=== PATIENT | female | born 2000 | race Caucasian/White ===

== ENCOUNTER → 2018-06-16 19:14 | Outpatient (REF) | payer OTHER, MEDICAID, SELFPAY ==
[2018-06-16 20:20] LABS: HIV 1 and 2 Antibody NEGATIVE (NEGATIVE)
[2018-06-19 22:59] LABS: RPR Screen Nonreactive (Nonreactive)
== END ==
LOC: LAB 19:14
PROVIDERS: PCP Physician Assistant Medical; Visit Provider Physician Assistant Medical
DX: Z11.3 Encounter for screening for infections with a predominantly sexual mode of transmission (principal)
CPT/HCPCS: 36415; 86592; 86703

== ENCOUNTER 2018-07-10 10:49 | Emergency (ER) | payer OTHER, MEDICAID, SELFPAY ==
[2018-07-10 10:57] VITALS: BP 146/101; PULSE 112; RESP 18; TEMP 36.9; O2SAT 99
--- NOTE | 2018-07-10 12:00 | PC.NURSE ---
Patient stated she wanted to leave, but RN told her that the [employer] brought her in and wanted her to get help so at this time cannot leave until medically cleared. Patient sitting on bed singing to herself She asked What kind of help do the police want me to get? She asked for her clothes
--- NOTE | 2018-07-10 12:03 | PC.NURSE ---
Food and beverage offered to patient but she declined
--- NOTE | 2018-07-10 12:05 | PC.NURSE ---
Patient asked us to call and let her mother and aunt know that she is here and if her mother calls she wants to talk to her
--- NOTE | 2018-07-10 12:10 | PC.NURSE ---
Gave pt apple juice on ice
--- NOTE | 2018-07-10 12:35 | PC.NURSE ---
1235 VAMP WETTER note Patient asked about what the news said, wants me to look up the news. Told her we can't do that, this is a work computer. Patient is asking to call her mom, wants me to let her out. I told patient she needs to sit in bed, and just get some rest. Patient is walking around room.
[2018-07-10 12:38] LABS: Urine Amphetamines Positive (Negative); Urine Barbiturates Negative (Negative); Urine Benzodiazepines Negative (Negative); Urine Cocaine Negative (Negative); Urine MDMA Positive (Negative); Urine Methadone Negative (Negative); Urine Methamphetamines Positive (Negative); Urine Morphine/Opi cutoff 2000 Negative (Negative); Urine Oxycodone Negative (Negative); Urine Phencyclidine Negative (Negative); Urine Tetrahydrocannabinol Positive (Negative); Urine Tricyclic Antidepressant Negative (Negative)
--- NOTE | 2018-07-10 12:58 | ED_ITS ---
HPI - Psych <HILDA Taylor - Last Filed: 07/10/18 22:13> General Chief Complaint: Psychiatric Symptoms Stated Complaint: Mental health Eval Time Seen by Provider: 07/10/18 12:21 Source: patient Mode of arrival: ambulatory Limitations: no limitations History of Present Illness HPI Narrative: 17-year-old female with history of meth abuse brought in by police due to having paranoia type symptoms. They state that she was in the parking was concerned about being poisoned and trying to be blown up by her boyfriend's a vehicle that was under pressure in that she had to release the pressure by opening the door eye. No known suicidal ideation. No known homicidal ideation. Charges were not filed against her. She states that she last used meth yesterday. She desires to go home at this timeframe. She does not want to have labs drawn. She did not want detox treatment. She does not want any inpatient help. Informed that her mother is coming to pick her up. Did discuss with patient that is a good idea for her at least wait for her mother to come before leaving. MD complaint: other Related Data Home Medications Medication Instructions Recorded Confirmed gabapentin 100 mg PO TID 07/10/18 07/10/18 quetiapine 100 mg PO BEDTIME 07/10/18 Review of Systems <HILDA Taylor - Last Filed: 07/10/18 22:13> Constitutional Denies chills, Denies fever(s), Denies lethargy and Denies weakness Eyes Denies change in vision, Denies eye discharge, Denies irritation and Denies loss of vision ENT Ears, Nose, Mouth, and Throat: Denies change in voice, Denies neck pain and Denies sore throat Cardiovascular Denies chest pain, Denies irregular heart rhythm, Denies lightheadedness, Denies palpitations, Denies dyspnea, Denies dyspnea on exertion and Denies orthopnea Respiratory Denies cough, Denies dyspnea, Denies dyspnea on exertion and Denies wheezing Gastrointestinal Gastrointestinal: Denies abdominal pain, Denies change in bowel habits, Denies diarrhea, Denies nausea and Denies vomiting Genitourinary Denies hematuria, Denies flank pain, Denies urinary incontinence and Denies urinary urgency Musculoskeletal Denies neck pain Integumentary/Breasts Denies pruritus, Denies erythema, Denies rash and Denies wounds Neurologic Denies loss of vision and Denies weakness Psychiatric Reports anxiety and Reports paranoia Endocrine Denies palpitations Allergic/Immunologic Denies wheezing PFSH <HILDA Taylor - Last Filed: 07/10/18 22:13> Social History Smoking Status: Current every day smoker Social History Smoking Status: Current every day smoker Exam <HILDA Taylor - Last Filed: 07/10/18 22:13> Initial Vital Signs Initial Vital Signs: Vital Signs Temperature 98.4 F 07/10/18 10:57 Pulse Rate 112 H 07/10/18 10:57 Respiratory Rate 18 07/10/18 10:57 Blood Pressure 146/101 H 07/10/18 10:57 Pulse Oximetry 99 07/10/18 10:57 Const General: cooperative, well developed, anxious and intoxicated appearing Nutritional Appearance: well nourished Orientation: alert, awake and oriented x3 HENMT Mouth: oral mucosae normal and moist mucous membranes Eyes Conjunctivae: conjunctivae normal Sclera: sclerae normal Pupils: PERRL EOM: EOM intact bilaterally Resp Effort & Inspection: normal respiratory effort, able to speak in complete sentences, no respiratory distress and no use of accessory muscles Auscultation: clear to auscultation bilaterally, no rales, no rhonchi and no wheezes Cardio Rate: regular rate Rhythm: regular rhythm Heart Sounds: no click, no gallops, no murmurs and no rubs Pulses: normal peripheral pulses Skin General: no rashes or lesions noted, No jaundice and No petechiae Psych Mood: anxious mood Affect: anxious affect Attitude: cooperative Thought Content: no homicidality and suicidality Judgment: fair <Josh Ramos MD - Last Filed: 07/12/18 02:41> Initial Vital Signs Initial Vital Signs: Vital Signs Temperature 98.4 F 07/10/18 10:57 Pulse Rate 112 H 07/10/18 10:57 Respiratory Rate 18 07/10/18 10:57 Blood Pressure 146/101 H 07/10/18 10:57 Pulse Oximetry 99 07/10/18 10:57 Course <HILDA Taylor - Last Filed: 07/10/18 22:13> Orders Ordered: ED Orders 07/10/18 11:45 Urine Drug Screen, Rapid Stat Vital Signs - 8 hr 07/10/18 17:05 Temperature 98.2 F Pulse Rate 101 H Respiratory Rate 18 Blood Pressure [Left Arm] 134/81 Pulse Oximetry 100 <Josh Ramos MD - Last Filed: 07/12/18 02:41> Orders Ordered: ED Orders 07/10/18 11:45 Urine Drug Screen, Rapid Stat Vital Signs - 8 hr 07/10/18 17:05 Temperature 98.2 F Pulse Rate 101 H Respiratory Rate 18 Blood Pressure [Left Arm] 134/81 Pulse Oximetry 100 MDM - Psych <HILDA Taylor - Last Filed: 07/10/18 22:13> Lab Data Lab Results 07/10/18 Range/Units 11:45 Urine Opiates Screen Negative (Negative) Ur Oxycodone Screen Negative (Negative) Urine Methadone Screen Negative (Negative) Ur Barbiturates Screen Negative (Negative) U Tricyclic Antidepress Negative (Negative) Ur Phencyclidine Scrn Negative (Negative) Ur Amphetamines Screen Positive H (Negative) U Methamphetamines Scrn Positive H (Negative) Ur MDMA Scrn (Ecstasy) Positive H (Negative) U Benzodiazepines Scrn Negative (Negative) Urine Cocaine Screen Negative (Negative) U Marijuana (THC) Screen Positive H (Negative) Point of Care Testing Test Results Negative Urine Dip Bedside Urine Glucose Negative Bedside Urine Bilirubin + 1 Bedside Urine Ketone - Negative Urine Specific [place] 1.030 Bedside Urine Occult Blood - Negative Bedside Urine pH 6.0 Bedside Urine Protein + 30 Bedside Urine Urobilinogen - Negative Bedside Urine Nitrite - Negative Bedside Urine Leukocytes - Negative Esterase [facility] Narrative Medical decision making narrative: She denies any suicidal ideations or homicidal ideations. Rapid urine drug screen was obtained and was positive for methamphetamines ecstasy and marijuana. Signs and symptoms presents as secon ailyn to recent meth and ecstasy use. She is alert and oriented x3. She is anxious and paranoid. She does not appear to be a risk to herself. She denies wanting any inpatient help at this time or detox. She was encouraged to wait for mother to come on the [place] to pick her up and she agreed. She has been cooperative in the emergency room. Discussed case with Dr. Ramos use states that if patient desires to leave that she is allowed to leave as she is not a danger to herself or others at this point and she cannot legally be held. She is discharged home with mother encouraged to follow up with primary care provider and seek detox if desires to quit. Return emergency room for any worsening symptoms. <Josh Ramos MD - Last Filed: 07/12/18 02:41> Lab Data Lab Results 07/10/18 Range/Units 11:45 Urine Opiates Screen Negative (Negative) Ur Oxycodone Screen Negative (Negative) Urine Methadone Screen Negative (Negative) Ur Barbiturates Screen Negative (Negative) U Tricyclic Antidepress Negative (Negative) Ur Phencyclidine Scrn Negative (Negative) Ur Amphetamines Screen Positive H (Negative) U Methamphetamines Scrn Positive H (Negative) Ur MDMA Scrn (Ecstasy) Positive H (Negative) U Benzodiazepines Scrn Negative (Negative) Urine Cocaine Screen Negative (Negative) U Marijuana (THC) Screen Positive H (Negative) Point of Care Testing Test Results Negative Urine Dip Bedside Urine Glucose Negative Bedside Urine Bilirubin + 1 Bedside Urine Ketone - Negative Urine Specific [place] 1.030 Bedside Urine Occult Blood - Negative Bedside Urine pH 6.0 Bedside Urine Protein + 30 Bedside Urine Urobilinogen - Negative Bedside Urine Nitrite - Negative Bedside Urine Leukocytes - Negative Esterase Discharge Plan Departure Patient Disposition: Home Clinical Impression: Drug-induced psychotic disorder Qualifiers: Complication of substance-induced condition: with unspecified complication Qualified Code(s): F19.959 - Other psychoactive substance use, unspecified with psychoactive substance-induced psychotic disorder, unspecified Discharge Date/Time: 07/10/18 18:00 Interventions: ED Discharge Assessment Last Done: 07/10/18 17:59 Instructions: Getting Treatment for Drug Addiction Activity Restrictions/Additional Instructions: Signs and symptoms present as secondary to methamphetamine use and ecstasy use. Recommend stop using illicit drugs to prevent their side effects. Follow up with your primary care provider. If you desire help to quit drug use recommend detox treatment. Return to the emergency room for any worsening symptoms. Prescriptions: No Action quetiapine 100 mg tablet 100 mg PO BEDTIME RF: 0 gabapentin 100 mg capsule 100 mg PO TID RF: 0 Referrals: Ludy Enamorado PA-C [Primary Care Provider] -
--- NOTE | 2018-07-10 12:59 | PC.NURSE ---
1259 SOFTWARE ASSET MANAGEMENT ANALYST note Patient talked on the phone per Gayatri. Patient is now in bed. She asked me to get her clothes, told me the doctor said it was okay and she's going home. I said I'd check on that but right now it's best if she sits on the bed. She sat down, then asked me how her sister . I said I don't know what you're talking about, but why don't you sit down? She is sitting on the bed looking at her hands crying.
--- NOTE | 2018-07-10 13:06 | PC.NURSE ---
pt refused lab draw from phlebolotmist, he said the needle was in her arm and she told him to take it out. I tried talking with her to agree to accept a blood draw and she refused. this was at 1110. Talked with mother Atiya White on the phone and she said she would be here around 5pm to pick her up. pt is alert and asking for evon.
--- NOTE | 2018-07-10 13:13 | PC.NURSE ---
1313 ACQUISITION ADVISOR note patient is in bed, occasionally crying, playing with hair.
--- NOTE | 2018-07-10 13:16 | PC.NURSE ---
Patient asking to talk to Stevenson saying she wants her clothes and wants to go. She doesn't want her Mom. I said I will rely the message when I can. Patient reiterated she doesn't want to see her mom.
--- NOTE | 2018-07-10 13:22 | PC.NURSE ---
5585 Patient is standing up wanting to talk to Doctor Stevenson. Explained to her he's with another patient, wanted to know which patient. I said I can't tell you that. Patient wants to talk to him. I told him when I see him I will tell him. She is standing in the room starring at me, crying.
--- NOTE | 2018-07-10 13:48 | PC.NURSE ---
returned the mother's call, updated her. Waiting for her to come to get the patient so she can be in a safe place. pt is lying on the gurney and So NOLASCO is at her door. pt's needs are met.
--- NOTE | 2018-07-10 14:21 | PC.NURSE ---
IMPRESS ASSOCIATE Note 1422 Patient is sleeping on gurney with blanket around her.
--- NOTE | 2018-07-10 15:18 | PC.NURSE ---
PERSONNEL SCHEDULER note 1519 Patient is sleeping on side with blanket wrapped around her.
--- NOTE | 2018-07-10 16:31 | PC.NURSE ---
HIGH SCHOOL MUSIC INSTRUCTOR note 1632 Patient is sleeping. [place] wrapped around her.
[2018-07-10 17:05] VITALS: BP 134/81; PULSE 101; RESP 18; TEMP 36.8; O2SAT 100
--- NOTE | 2018-07-10 17:09 | PC.NURSE ---
DRESS CUTTER note 1704 vital signs complete. Patient woke up and started to cry to please go home.
--- NOTE | 2018-07-10 17:15 | PC.NURSE ---
PRESS ASSISTANT note Patient is crying loudly. Sitting on edge of the bed.
--- NOTE | 2018-07-10 17:27 | PC.NURSE ---
HEDIS ANALYST note. Patient was standing at the door asking for the doctor, saw the male RT and called for him and wanted his help, asking to call relatives, and wanting to leave- stating I am over 16, I don't need my mom. RT talked to her. Selin LOPEZ, talked to patient, updated her, got her a snack. Patient sitting on bed crying, eating her snack, saying that my mom is here I can feel it. I can feel her.
--- NOTE | 2018-07-10 17:45 | PC.NURSE ---
pt stated that she is 17 and can make her own decisions, I told her that was true but her mom was on her way. She doesn't want to see her mom. I got her something to eat at her request. As I was getting her ready for discharge, Gissel our social media sr strategy manager wondered if the patient wanted to see her so I asked the patient and she agreed to talk with Gissel. and just now the family has arrived, I've asked them to wait in the lobby until she is done talking with Gissel. pt is dressed as she was going to be discharged.
--- NOTE | 2018-07-10 18:59 | CM.SWNOTE ---
ED VEGETABLE BUNCHER NOTE Presenting problem: Pt is a 17 yo brought in by [employer]. Tox screen was positive for meth, ecstasy, and marijuana. Initially pt wanted to leave, but was convinced to stay and fell asleep. Pt was unable to say why she was brought to the hospital. When I introduced myself to the pt she said you were in my dream. A short time later she asked if I was related to the sun god. Assessment: Pt seems to be having a psychotic response to the substances taken. Despite some of the illogical comments, She was consistent in her denial of SI to several staff and her provider. She mentioned to this SW that she often has SI, but has not for several days. When asked what she does and if she is employed, she reported that she cared for her child. She mentioned that her child is with the child's father. It is not known how much time she spends with this child and if she has custody. Pt was able to provide several phone numbers and names of relatives in Tuesday. It was not clear where she was going upon discharge as she initially stated she did not want to see her mother. despite this, pt's mother came by valarie from Tuesday to bead picker pt. Pt was very vague in her comments, but given that she denied SI and HI and her mother was picking pt up to take her back to [place], it did not appear that pt met criteria for detainment. Mental Status: Pt is a well groomed 17 yo who looks considerably younger than her stated age. Eye contact: Pt tended to stare directly at this when asked a question. It was not direct eye contact, but more of a feeling as though she was staring through. Speech/language: Pt's speech was soft,sentences was clear and goal directed. Thought process: It appeared as though pt was paranoid. ( stating that she is supposed to be the fall for what's going on) She did not elaborate. She thought she knew me from a dream, but denied hearing voices or having any visual hallucinations. Affect was blunted, but earlier today information stated pt was crying loudly. Mood appeared sad. SI/HI denied. Plan: Encouraged pt to accept a call from [employer] this evening, but she declined. She accepted info from [employer] and requested the phone # for [facility] in [place] where she previously attended a rehab program. Pt was also provided with a list of other substance abuse services in the area. She is aware that she can return should symptoms worsen. No further SW needs noted. Discharge Planning/Care Management ED Crisis Response Assessment Start: 07/10/18 18:53 Freq: Status: Active Protocol: Document 07/10/18 18:53 BG (Rec: 07/10/18 18:59 BG [id number]) ED Crisis Response Assessment VEGETABLE BUNCHER Assessment Type Substance Abuse Reason for VEGETABLE BUNCHER Referral Pt brought in by the police, assessed by BUILDINGS AND GROUNDS SUPERINTENDENT that she is safe to d/c. SW inquired if pt might be willing to be seen by me. Referred by Pt's RN Presenting Problem Pt is a 17 yo brought in by police. She was positive for meth, ecstasy, and although she denied SI, exhibited signs of paranoia and psychosis. Mental health diagnosis unknown other than substance abuse VOA/CMS check No Suicidal thoughts No Past Suicidal thoughts Yes Current Suicidal thoughts No Thoughts of harm to others No Risk factor comments unknown. Due to pt's psychiatric conditoin, it was not known what informaiton was valid. 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 It was not known if she actually watches the c hild or not. Crisis Plan Pt's mother came [place]. Pt gave the names of several relatives that she can contact and stay with today. Pt was very vague when asked where she planned to stay upon discharge. Resources Provided Pt was provide with handouts about resources in the area, [facility], and she requested the phone number for [facility] in [place]. Pt was unwilling to provide a lot of informaiton,b ut said hse had been there in the past and planned to contact them. Action taken Sent home: family/friends Additional Comment Pt was asked if she was interested in having VOA ghassan her to check in, but she declined. ED Psychiatric Symptoms Assessment Start: 07/10/18 11:03 Freq: Status: Discharge Protocol: Document 07/10/18 11:04 JUAN (Rec: 07/10/18 11:08 KAITLYNN [id number]) Psychiatric Symptoms Assessment Symptoms/Complaint Altered Mental Status Duration unknown History Of Same unknown Context Recent Drug Abuse Improves With Nothing Worsens With Nothing Associated Psychiatric Symptoms Racing Thoughts Details of Plan Denies SI/HI. Thoughts are disjointed. Paranoid in nature . Easily full of tears but able to be verbally reassured. Level of Consciousness Alert Restless Patient Orientation Name Age Birthday Patient Behavior/Mood Anxious Crying/Tearful Distractible Fearful Labile Restless Suspicious Ability to Follow Directions Poor Patient Cognition Impaired clasically a/o x 4 but dificult to follow train of thought. Affect Description Anxious Expansive Fearful Suspicious Tearful Patient Appearance Well Groomed Hallucination Type None Delusion Description Paranoid Ideation Thought Process: Disorganized Major Depressive Episode No Feelings of Hopelessness No Suicidal Ideation None Suicide Plan No Plan Homicidal Ideation None Nausea/Vomiting None
--- NOTE | 2018-08-23 13:52 | PC.NURSE ---
Critical Care time happened with this patient. Unknown times as this is post dated.
== END 2018-07-10 18:00 | disposition home or self-care (01) ==
PROVIDERS: Emergency Medicine; Emergency Provider Nurse Practitioner Family; PCP Physician Assistant Medical
DX: F19.959 Other psychoactive substance use, unspecified with psychoactive substance-induced psychotic disorder, unspecified (principal)
CPT/HCPCS: 80305; 81003; 81025; 99283; 99285